=== PATIENT | female | born 1990 | race African-American/Black ===

== ENCOUNTER 2021-07-10 10:35 | Emergency (ER) | payer SELFPAY ==
[~2021-07-10] VITALS: Ht 157.5 cm; Wt 63.5 kg
[2021-07-10] MEDS ORDERED: IBUPROFEN600 MG PO (12:48)
== END 2021-07-10 13:21 | disposition home or self-care (01) ==
LOC: ER 10:40
DX: J40 Bronchitis, not specified as acute or chronic (principal); Z20.822 Contact with and (suspected) exposure to COVID-19
CPT/HCPCS: 71045; 99284; U0002